=== PATIENT | male | born 1975 | race Caucasian/White ===

== ENCOUNTER 2020-05-04 07:03 | Day surgery (SDC) | payer OTHER ==
[~2020-05-04] VITALS: Ht 188 cm; Wt 95.5 kg
[~2020-05-04 07:03] MED LIST: ACETAMINOPHEN325 MG PO; OMEPRAZOLE20 M1 PO
[2020-05-04 07:54] VITALS: Ht 188 cm; Wt 95.5 kg
[2020-05-04 07:56] LABS: HEMATOCRIT 41.4 % (42.0-54.0); HEMOGLOBIN 14.4 g/dL (13.5-17.5); MCH 30.4 pg (26.0-34.0); MCHC 34.8 g/dL (31.0-37.0); MCV 87.3 fL (80.0-100.0); MEAN PLATELET VOLUME 9.1 fL (7.4-10.4); RBC 4.74 10x6/uL (4.20-6.10); RDW 13.1 % (11.5-14.5); WBC 6.4 10x3/uL (4.8-10.8)
--- NOTE | 2020-05-04 09:49 | NUR ---
DC INSTRUCTIONS GIVEN TO PT. STATES UNDERSTANDING. DC'D IV CATH FULLY INTACT. WILL DC SHORTLY.
--- NOTE | 2020-05-04 10:02 | NUR ---
PT LEFT UNIT VIA AT [id number]
--- NOTE | 2020-05-04 16:37 | OP ---
PATIENT NAME: HANS MCLAIN MEDICAL RECORD: [id number] :73 LOCATION:[facility] ADMISSION DATE: SURGEON: MAJO LOVE MD DATE OF OPERATION: 05/04/2020 PROCEDURE: Colonoscopy. PREOPERATIVE DIAGNOSIS: Mr. Mclain is a 44-year-old patient who was recently diagnosed with diverticulitis with perforation. This occurred in December of 2019. He did not need surgery. He was treated with conservative management and bowel rest. He is here today for his first colonoscopy; however, he does also state he has a family history of colon cancer. MEDICATION: Propofol per anesthesia. DESCRIPTION OF PROCEDURE: The patient was made comfortable in the left lateral position. The colonoscope was inserted through the rectum and advanced to the cecum, identified by the ileocecal valve and appendiceal orifice. The quality of the prep was good. The colonoscope was inserted through the rectum. At 30 cm from the rectum was severe diverticular disease. There were multiple diverticula as well as tortuosity and stiffness of the colon at this area. The regular colonoscope could not traverse this area. I suspect this is where the patient had his location of acute diverticulitis in December. The regular colonoscope was exchanged for a smaller endoscope and the endoscope did pass through this narrow area; however, with difficulty. The endoscope did not reach all the way to the cecum as it was a shorter scope, but I was able to reach the distal ascending colon. The exam to the distal ascending colon was normal. The patient tolerated the procedure well. There were no immediate complications. FINAL DIAGNOSES: Multiple diverticula at 30 cm with severe diverticular disease and stiffening of the colon in this region. I suspect this is where he had his previous bout of acute diverticulitis. The colonoscope could not traverse through this area and a smaller endoscope was then used to gently navigate through this area. The smaller endoscope could only reach to the distal ascending colon. PLAN: We will schedule a barium enema. Order CEA level on this patient. I do recommend a repeat colonoscopy in 6 months to 1 year for further evaluation. The area of difficulty to traverse could have been secondary to his recent acute diverticulitis and therefore, I recommend colonoscopy to be reattempted in 6 months to 1 year. TRANSINT:[id number] Voice Confirmation ID: [id number] DOCUMENT ID: [id number] MAJO LOVE MD at 1637 CC: [id number] DICTATION DATE: 05/04/20917 DISTRICT ATTORNEY: 05/04/20 [address] [facility] 05/04/20 [id number] [place] [address]
== END 2020-05-04 09:55 | disposition home or self-care (01) ==
LOC: D.OPS 07:03
PROVIDERS: Anesthesiology; ATTEND Internal Medicine Gastroenterology
DX: K57.80 Diverticulitis of intestine, part unspecified, with perforation and abscess without bleeding (principal); Z80.0 Family history of malignant neoplasm of digestive organs; R10.814 Left lower quadrant abdominal tenderness